=== PATIENT | female | born 1950 | race Caucasian/White ===

== ENCOUNTER → 2016-06-06 | Outpatient (CLI) | payer OTHER ==
--- NOTE | 2016-06-06 17:02 | MA ---
Screening Digital Mammogram With Tomosynthesis Clinical Indications: Routine screening. Technique: Standard digital cephalocaudal and tomosynthesis mediolateral oblique projections are obt ained. The digital images were processed by the [employer] computer aided detection system. Comparison: May 2015, 2013, 2012 and 2011 Breast density: B; There are scattered fibroglandular densities. Findings: CAD was reviewed. There is a newly identified 4.5 mm nodule high in the slightly inner left breast (12/09). The remainder the left right breast are stable. Impression: New nodule upper left breast. Recommendation: Ultrasound to differentiate cyst from solid. Please fax an order for a left breast ultrasound to [phone].. Replaced By [facility] will send a result letter to the patient. Negative mammography should not preclude additional workup of a clinically suspicious finding. The patient's information is entered into a reminder system with a target due date for her next mammo gram.
== END ==
LOC: FIMAGING 15:47
DX: Z12.31 Encounter for screening mammogram for malignant neoplasm of breast (principal)
CPT/HCPCS: G0202

== ENCOUNTER → 2016-06-13 | Outpatient (CLI) | payer OTHER ==
--- NOTE | 2016-06-16 07:56 | US ---
Ultrasound left breast History: Smooth nodule upper left breast at mammography. Rule out mass versus cyst. Findings: Ultrasound of the 12 o'clock position left breast about 8 cm from the nipple confirms a sim ple cyst that measures 4 x 5 x 6 mm. This corresponds to the abnormality seen at mammography. No santos tional solid or cystic mass is seen. Impression: 1. Benign fibrocystic condition upper left breast with simple cyst corresponding to mammographic abno rmality. BI-RADS 2 Routine annual mammographic followup recommended. The results of this study were reviewed with the patient.
== END ==
LOC: FIMAGING 12:14
PROVIDERS: ATTEND Internal Medicine
DX: N60.02 Solitary cyst of left breast (principal)

== ENCOUNTER → 2016-07-25 | Outpatient (CLI) | payer OTHER | LOC: CIMAGING 08:59 | PROVIDERS: ATTEND Internal Medicine | DX: R74.8 Abnormal levels of other serum enzymes (principal); K80.20 Calculus of gallbladder without cholecystitis without obstruction; R16.0 Hepatomegaly, not elsewhere classified | CPT/HCPCS: 76705-PO ==

== ENCOUNTER → 2016-09-05 | Outpatient (CLI) | payer OTHER ==
[~2016-09-05] MED LIST: IOPAMIDOL (ISOVUE-300) 100 ML BTL IV ONE
== END ==
LOC: FIMAGING 12:38
DX: R74.8 Abnormal levels of other serum enzymes (principal); R16.0 Hepatomegaly, not elsewhere classified; K80.20 Calculus of gallbladder without cholecystitis without obstruction
CPT/HCPCS: Q9967

== ENCOUNTER 2017-02-08 19:21 | Emergency (ER) | payer OTHER ==
[2017-02-08 19:32] VITALS: TEMP 98.4
--- NOTE | 2017-02-08 19:38 | EDPHY ---
H & P Stated Complaint: c/o hives all over since , saw UC yester. given steroid shot Time Seen by Provider: 02/08/17 19:28 HPI/ROS: CHIEF COMPLAINT: Hives HISTORY OF PRESENT ILLNESS: 66-year-old female presents emergency department complaining of hives to her arms and legs that started 3 days ago. Patient reports she has been taking 25 mg of Benadryl 2-3 times per day without relief. She was seen at urgent care yesterday and given an IM shot of a steroid which was helpful for a couple hours. Patient reports she is itchy. She denies tongue swelling, throat swelling, difficulty breathing, wheezing. Patient has a history of anaphylaxis with kiwi, and Imitrex. No new soaps, lotions, detergents. No fevers or chills, no abdominal pain. REVIEW OF SYSTEMS: A comprehensive 10 point review of systems is otherwise negative aside from elements mentioned in the history of present illness. Source: Patient Exam Limitations: No limitations - Personal History Current Tetanus Diphtheria and Acellular Pertussis (TDAP): Yes - Medical/Surgical History Hx Asthma: Yes Hx Chronic Respiratory Disease: No Hx Diabetes: No Hx Cardiac Disease: No Hx Renal Disease: No Hx Cirrhosis: No Hx Alcoholism: No Hx HIV/AIDS: No Hx Splenectomy or Spleen Trauma: No Other PMH: osteoprosis and degenerative disc disease, childhood asthma, elevated liver labs- fatty liver disease, migraines - Social History Smoking Status: Never smoked - Physical Exam Exam: General: Alert, nontoxic. ENT: Tympanic membranes clear, external auditory canal, external ear and surrounding soft tissue including over the mastoid unremarkable. Nasopharynx is not injected, there is no rhinorrhea. Oropharynx without erythema or edema. There is no exudate. No tonsillar hypertrophy. No asymmetry. The uvula is midline. No elevation of tongue. There is no hoarseness. No drooling, patient has good control of their oral secretions. No trismus. No stridor. Cardiac: Regular rate and rhythm. Respiratory: Lungs clear to auscultation bilaterally. Neurological: no meningismus. Skin: Urticaria to bilateral arms and legs. None to core. Constitutional: Initial Vital Signs Temperature (C) 36.9 C 02/08/17 19:28 Heart Rate 70 02/08/17 19:28 Respiratory Rate 18 02/08/17 19:28 Blood Pressure 141/76 H 02/08/17 19:28 O2 Sat (%) 99 02/08/17 19:28 O2 Delivery Mode Room Air Allergies/Adverse Reactions: codeine [Codeine] Allergy (Verified 07/05/13 17:52) Sulfa (Sulfonamide Antibiotics) Allergy (Verified 07/05/13 17:52) sumatriptan [From Imitrex] Allergy (Verified 07/05/13 17:52) sumatriptan succinate [From Imitrex] Allergy (Verified 07/05/13 17:52) Home Medications: Medication Instructions Recorded Propranolol HCl [Inderal] 120 mg PO DAILY 12/08/10 EPINEPHRINE [EPIPEN] 0.3 mg IM ONCE #2 syr 02/08/17 Famotidine [Pepcid] 40 mg PO DAILY 5 Days tablet 02/08/17 Fioricet (*) 02/08/17 Fosamax 5mg 02/08/17 predniSONE 40 mg PO DAILY 5 Days tab 02/08/17 Medical Decision Making ED Course/Re-evaluation: 66-year-old female presents with urticaria to her extremities. No evidence of anaphylaxis. Patient is given oral prednisone, Pepcid and Zyrtec in the emergency department. She is given a prescription for a 5 day course of prednisone and Pepcid. She is given prescription for EpiPen to use for emergencies. She is given strict return precautions. Differential Diagnosis: Diagnosis considered but not limited to urticaria, allergic reaction, William Monster syndrome, cellulitis - Data Points Medications Given: Discontinued Medications Famotidine (Pepcid) 40 mg PO EDNOW ONE Stop: 02/08/17 19:54 Last Admin: 02/08/17 19:57 Dose: 40 mg Prednisone (Prednisone) 60 mg PO EDNOW ONE Stop: 02/08/17 19:54 Last Admin: 02/08/17 19:56 Dose: 60 mg Departure - Departure Disposition: Home, Routine, Self-Care Clinical Impression: Urticaria Condition: Good Instructions: Urticaria (ED) Additional Instructions: There are 4 medications used to treat allergic reactions. #1. The first is epinephrine. Please use the epinephrine pen in the future as needed if the patient develops acute swelling, throat tightness, shortness of breath, or severe rash in the setting of allergic reaction. #2. The second type of medication are antihistamines. The most common antihistamine is diphenhydramine (Benadryl). Dose is 25-50 mg every 6-8 hours as needed for itching and rash. Diphenhydramine can be sedating. Another type of antihistamine is loratadine (Claritin). This is taken once a day. It is not sedating. Repeat doses of antihistamines may be needed as the hives will come and go over the next several days. You may notice that the hives are worse after exposure to heat, warm showers, or exertion. #3. The third medication is Pepcid which is another type of an antihistamine. Dose is 40 mg once a day for 5 days. This should be taken on a regular basis. #4. The fourth medication is prednisone, which is a steroid. The dose is 40 mg a day x5 doses. Please take this as instructed. #5. Return to emergency department or seek care urgently if severe shortness of breath develops, swelling of the lips, eyelids, or sensation that the throat is closing. Please follow up with your primary care physician as needed. Referrals: Machelle Michaud MD [Primary Care Provider] - As per Instructions Prescriptions: EPINEPHRINE [EPIPEN] 0.3 mg IM ONCE #2 syr Famotidine [Pepcid] 40 mg PO DAILY 5 Days tablet predniSONE 40 mg PO DAILY 5 Days tab
[2017-02-08] MEDS ORDERED: FAMOTIDINE 20 MG TAB PO ONE (19:53)
[2017-02-08] MEDS ORDERED: CETIRIZINE 10 MG TAB PO ONE (19:53)
[2017-02-08] MEDS ORDERED: predniSONE 20 MG TAB PO ONE (19:53)
[2017-02-08 20:53] VITALS: BP 122/74; PULSE 78; RESP 16; O2SAT 97
== END 2017-02-08 20:53 | disposition home or self-care (01) ==
DX: L50.9 Urticaria, unspecified (principal); J45.909 Unspecified asthma, uncomplicated

== ENCOUNTER → 2017-06-12 | Outpatient (CLI) | payer OTHER | LOC: FIMAGING 16:10 | PROVIDERS: ATTEND Internal Medicine | DX: Z12.31 Encounter for screening mammogram for malignant neoplasm of breast (principal); Z80.3 Family history of malignant neoplasm of breast ==

== ENCOUNTER → 2017-06-19 | Outpatient (CLI) | payer OTHER | LOC: FIMAGING 13:16 | PROVIDERS: ATTEND Internal Medicine Endocrinology, Diabetes & Metabolism | DX: E04.1 Nontoxic single thyroid nodule (principal); D86.9 Sarcoidosis, unspecified ==

== ENCOUNTER → 2018-11-26 | Outpatient (CLI) | payer OTHER | LOC: FIMAGING 15:59 ==